=== PATIENT | female | born 1980 | race Two or more races ===

== ENCOUNTER 2022-07-20 08:06 | Emergency (ER) | payer OTHER ==
[~2022-07-20] VITALS: Ht 157.5 cm; Wt 89.8 kg
[2022-07-20 08:54] VITALS: BP 128/83
[2022-07-20] MEDS ORDERED: CYCL-839 PO (12:02)
[2022-07-20] MEDS ORDERED: IBUP600T28 PO (12:02)
[2022-07-20] MEDS ORDERED: IBUPROFEN 600 MG TAB PO ONE (12:15)
== END 2022-07-20 12:27 | disposition home or self-care (01) ==
LOC: ER 08:06
DX: S30.0XXA Contusion of lower back and pelvis, initial encounter (principal); Z79.1 Long term (current) use of non-steroidal anti-inflammatories (NSAID); Z79.899 Other long term (current) drug therapy; Y04.2XXA Assault by strike against or bumped into by another person, initial encounter; Y93.89 Activity, other specified; Y92.89 Other specified places as the place of occurrence of the external cause; Y99.8 Other external cause status
CPT/HCPCS: 72110

== ENCOUNTER 2025-01-27 10:31 | Outpatient (CLI) | payer BC ==
[~2025-01-27 10:31] MED LIST: CYCL-839 PO; IBUP1TAB5 PO
[2025-01-27 11:00] LABS: Hematocrit 40.3 % (36.0-46.0); Hemoglobin 13.9 g/dL (12.2-16.2); Mean Corpuscular Hemoglobin 33.0 pg (28.0-32.0); Mean Corpuscular Volume 95.7 fL (80.0-100.0); Nucleated Red Blood Cells % 0.1 %
[2025-01-27 11:35] LABS: Beta HCG, Quantitative < 0.0 mIU/mL (1.5-4.2)
[2025-01-27 11:38] LABS: Thyroid Stimulating Hormone 0.33 uIU/mL (0.55-4.78)
[2025-01-27 11:53] LABS: Follicle Stimulating Hormone 5.18 IU/L (SEE BELOW)
[2025-01-27 11:54] LABS: Free T4 (Free Thyroxine) 1.21 ng/dL (0.89-1.76)
== END 2025-01-27 17:00 | disposition home or self-care (01) ==
LOC: LAB 10:31
PROVIDERS: ATTEND Obstetrics & Gynecology
DX: N93.9 Abnormal uterine and vaginal bleeding, unspecified (principal)
CPT/HCPCS: 36415; 82670; 83001; 83002; 84403; 84439; 84443; 84702; 85025